=== PATIENT | female | born 1985 | race Caucasian/White ===

== ENCOUNTER 2020-05-11 23:21 | Observation (INO) | payer MEDICAID ==
[~2020-05-11] VITALS: Ht 154.9 cm; Wt 89.8 kg
[2020-05-12] MEDS ORDERED: LACTATED RINGERS 1,000 ML IV SCH (00:45)
[2020-05-12 01:44] LABS: CLARITY URINE CLEAR (CLEAR); COLOR URINE YELLOW (YELLOW); KETONES URINE NEGATIVE (NEGATIVE); LEUKOCYTE ESTERASE URINE NEGATIVE (NEGATIVE); NITRITE URINE NEGATIVE (NEGATIVE); OCCULT BLOOD URINE 1+ (NEGATIVE); PROTEIN URINE NEGATIVE (NEGATIVE); SPECIFIC GRAVITY URINE 1.008 (1.005-1.030); UROBILINOGEN URINE 0.2 E.U./dL (0.2-1.0)
[2020-05-12] MEDS ORDERED: PREN1TAB78 PO (02:48)
[2020-05-12] MEDS ORDERED: FERR-71 PO (02:48)
[2020-05-12] MEDS ORDERED: CALC-1042 PO (02:48)
== END 2020-05-12 03:00 | disposition home or self-care (01) ==
LOC: 8 EST LDRP 23:21 → EDSEX 23:21
PROVIDERS: ADMIT Obstetrics & Gynecology; ATTEND Obstetrics & Gynecology
DX: O36.8130 Decreased fetal movements, third trimester, not applicable or unspecified (principal); O26.893 Other specified pregnancy related conditions, third trimester; R10.30 Lower abdominal pain, unspecified; Z3A.37 37 weeks gestation of pregnancy
CPT/HCPCS: 81003; 96360; 99281; G0378

== ENCOUNTER → 2020-05-21 | Outpatient (CLI) | payer MEDICAID ==
[~2020-05-21] MED LIST: CALC-1042 PO; FERR-71 PO; PREN1TAB78 PO
== END | disposition home or self-care (01) ==
LOC: LAB 09:55
PROVIDERS: ATTEND Obstetrics & Gynecology
DX: Z11.59 Encounter for screening for other viral diseases (principal)
CPT/HCPCS: C9803; U0003

== ENCOUNTER 2020-05-23 06:00 | Inpatient (IN) | payer MEDICAID ==
[~2020-05-23] VITALS: Ht 154.9 cm; Wt 68.0 kg
[2020-05-23] MEDS ORDERED: SODIUM CHLORIDE 0.9% 10ML VIAL ONE (07:21)
[2020-05-23] MEDS ORDERED: CEFAZOLIN SODIUM 1000MG/VIAL ONE (07:21)
[2020-05-23] MEDS ORDERED: ONDANSETRON HCL 4MG/2ML INJ ONE (07:21)
[2020-05-23] MEDS ORDERED: OXYTOCIN 10 UNITS/ML 1ML ONE (07:21)
[2020-05-23] MEDS ORDERED: EPHEDRINE SULFATE 50MG/ML VIAL ONE (07:21)
[2020-05-23] MEDS ORDERED: KETOROLAC 60MG/2ML VIAL IM ONE (07:21)
[2020-05-23] MEDS ORDERED: PHENYLEPHRINE HCL 10 MG/ML 1ML (IV VIAL) IV ONE (07:21)
[2020-05-23] MEDS ORDERED: METOCLOPRAMIDE HCL 10MG/2ML VIAL ONE (07:22)
[2020-05-23] MEDS ORDERED: LACTATED RINGERS 1,000 ML IV SCH (07:42)
[2020-05-23] MEDS ORDERED: METHYLERGONOVINE MALEATE 0.2 MG/ML IM PRN (07:45)
[2020-05-23] MEDS ORDERED: CARBOPROST TROMETHAMINE 250 MCG/ML AMPUL IM PRN (07:45)
[2020-05-23] MEDS ORDERED: FENTANYL CITRATE/PF 50MCG/ML 2ML VIAL ONE (07:53)
[2020-05-23] MEDS ORDERED: MORPHINE SULFATE/PF 1MG/ML 10ML AMP ONE (07:53)
[2020-05-23] MEDS ORDERED: CITRIC ACID/SODIUM CITRATE SOLN 30ML UDC PO NR (08:00)
[2020-05-23 08:08] LABS: BASOPHILS % 0.6 % (0.0-2.0); HEMATOCRIT. 37.5 % (36.0-48.0); HEMOGLOBIN. 13.2 g/dL (12.0-16.0); MEAN CORPUSCULAR HEMOGLOBIN 33.8 pg (28.0-32.0); MEAN CORPUSCULAR VOLUME 96.2 fL (81.0-99.0); MEAN PLATELET VOLUME 9.6 fl (7.4-10.4); MONOCYTES % 7.6 % (2.0-8.0); NEUTROPHILS % 57.8 % (40.0-76.0); PLATELET 188 x1000/uL (130-400); RED CELL DISTRIBUTION WIDTH 12.5 % (11.6-14.6)
[2020-05-23 08:09] LABS: CLARITY URINE CLEAR (CLEAR); COLOR URINE YELLOW (YELLOW); KETONES URINE NEGATIVE (NEGATIVE); LEUKOCYTE ESTERASE URINE TRACE (NEGATIVE); NITRITE URINE NEGATIVE (NEGATIVE); OCCULT BLOOD URINE NEGATIVE (NEGATIVE); PH URINE 6.5 (4.5-8.0); PROTEIN URINE NEGATIVE (NEGATIVE); SPECIFIC GRAVITY URINE 1.019 (1.005-1.030)
[2020-05-23 08:18] LABS: INR 0.9; PARTIAL THROMBOPLASTIN TIME 28.4 sec (23.4-31.0)
[2020-05-23] MEDS ORDERED: METOCLOPRAMIDE HCL 10MG/2ML VIAL IV PRN (08:30)
[2020-05-23] MEDS ORDERED: DIPHENHYDRAMINE 50MG/ML VIAL IV PRN (08:30)
[2020-05-23] MEDS ORDERED: KETOROLAC 30MG/ML VIAL IV PRN (08:30)
[2020-05-23] MEDS ORDERED: ONDANSETRON HCL 4MG/2ML INJ IV PRN (08:30)
[2020-05-23] MEDS ORDERED: MEPERIDINE HCL/PF 25MG/ML CPJ IV PRN (08:30)
[2020-05-23 08:40] LABS: *AMPHETAMINES SCREEN URINE NEGATIVE (NEGATIVE); *BARBITURATES SCREEN URINE NEGATIVE (NEGATIVE); *BENZODIAZEPINES SCREEN URINE NEGATIVE (NEGATIVE); *COCAINE SCREEN URINE NEGATIVE (NEGATIVE)
[2020-05-23 08:41] LABS: CANNABINOID URINE SCREEN NEGATIVE (NEGATIVE); METHADONE URINE SCREEN NEGATIVE (NEGATIVE); OPIATES URINE SCREEN NEGATIVE (NEGATIVE); PHENCYCLIDINE URINE SCREEN NEGATIVE (NEGATIVE)
[2020-05-23 10:45] LABS: HEPATITIS B SURFACE ANTIGEN NEGATIVE
[2020-05-23] MEDS: DEXT 5%/LR + PITOCIN 20UNITS/L 1,000 ML IV SCH (11:46)
[2020-05-23 12:30] VITALS: BP 99/44
[2020-05-23 13:30] VITALS: BP 101/40
[2020-05-23 17:14] VITALS: BP 93/59
[2020-05-23 19:40] VITALS: BP 91/60
[2020-05-24 00:01] VITALS: BP 107/70
[2020-05-24] MEDS: DEXT 5%/LR + PITOCIN 20UNITS/L 1,000 ML IV SCH (03:08)
[2020-05-24 04:00] VITALS: BP 95/50
[2020-05-24] MEDS ORDERED: DEXT 5%/LACTATED RINGERS 1,000 ML IV SCH (08:26)
[2020-05-24] MEDS ORDERED: BISACODYL 10MG SUPP PR PRN (08:30)
[2020-05-24] MEDS ORDERED: LANOLIN OINT 7GM TUBE TOP PRN (08:30)
[2020-05-24] MEDS ORDERED: HEMORRHOIDAL SUPP PR PRN (08:30)
[2020-05-24] MEDS ORDERED: ONDANSETRON HCL 4MG/2ML INJ IV PRN (08:30)
[2020-05-24] MEDS ORDERED: IBUPROFEN 400MG TABLET PO PRN (08:30)
[2020-05-24] MEDS ORDERED: DIPHENHYDRAMINE 25MG CAPSULE PO PRN (08:30)
[2020-05-24 09:18] LABS: BASOPHILS % 0.3 % (0.0-2.0); EOSINOPHILS % 1.5 % (0.0-5.0); HEMATOCRIT. 36.7 % (36.0-48.0); HEMOGLOBIN. 12.8 g/dL (12.0-16.0); LYMPHOCYTES % 17.9 % (20.0-50.0); MEAN CORPUSCULAR HEMOGLOBIN 33.9 pg (28.0-32.0); MEAN CORPUSCULAR VOLUME 97.3 fL (81.0-99.0); MEAN PLATELET VOLUME 8.9 fl (7.4-10.4); MONOCYTES % 7.3 % (2.0-8.0); PLATELET 151 x1000/uL (130-400); RED BLOOD CELL COUNT 3.77 mill/uL (4.2-5.4)
[2020-05-24] MEDS: SIMETHICONE 80MG TABLET CHEW PO SCH ×4 (10:17→21:42)
[2020-05-24] MEDS: PRENATAL VIT/FE FUMARATE/FA TABLET PO SCH (10:18)
[2020-05-24] MEDS: IBUPROFEN 800MG TABLET PO PRN ×2 (10:19→21:52)
[2020-05-24] MEDS: MAGNESIUM/ALUMINUM HYDROXIDE/SIMETHICONE 30ML UDC PO SCH ×3 (13:24→21:41)
[2020-05-24 14:00] VITALS: BP 113/62
[2020-05-24] MEDS: FERROUS SULFATE 325MG TABLET PO SCH (18:10)
[2020-05-24 19:50] VITALS: BP 102/62
[2020-05-24] MEDS ORDERED: DOCUSATE SODIUM 100MG CAPSULE PO SCH (21:00)
[2020-05-24 23:50] VITALS: BP 112/65
[2020-05-25 04:00] VITALS: BP 110/63
[2020-05-25 08:00] VITALS: BP 115/75
[2020-05-25] MEDS: PRENATAL VIT/FE FUMARATE/FA TABLET PO SCH (08:51)
[2020-05-25] MEDS: FERROUS SULFATE 325MG TABLET PO SCH (08:51)
[2020-05-25] MEDS: SIMETHICONE 80MG TABLET CHEW PO SCH (08:55)
[2020-05-25] MEDS: MAGNESIUM/ALUMINUM HYDROXIDE/SIMETHICONE 30ML UDC PO SCH (08:55)
== END 2020-05-25 13:45 | disposition home or self-care (01) | DRG 540 ==
LOC: 8 EST LDRP 06:00 → 8EST 18:52
PROVIDERS: ADMIT Obstetrics & Gynecology; ATTEND Obstetrics & Gynecology
PROC: 10D00Z1 Extraction of Products of Conception, Low, Open Approach (ICD-10-PCS; principal; 2020-05-23)
DX: O34.211 Maternal care for low transverse scar from previous cesarean delivery (principal); Z3A.39 39 weeks gestation of pregnancy; Z37.0 Single live birth; Z83.3 Family history of diabetes mellitus
CPT/HCPCS: 36415; 80305; 81003; 85025; 86592; 86703; 86762; 86850; 86900; 87340; 88307; J0690; J1885; J2274; J2370; J2405; J2590; J2765; J3010; J3490; J7121